=== PATIENT | male | born 1990 | race Caucasian/White ===

== ENCOUNTER 2018-06-23 23:13 | Inpatient (IN) ==
[2018-06-23] MEDS ORDERED: SODIUM CHLORIDE 0.9% 1000ML 1,000 ML IV STA (23:40)
[2018-06-23] MEDS ORDERED: SODIUM CHLORIDE 0.9% 1000ML 1,000 ML IV SCH (23:45)
[2018-06-23] MEDS ORDERED: NALOXONE HCL 0.4 MG/1 ML VIAL/CARP IV STA (23:49)
[2018-06-23 23:53] LABS: Basophils # (auto) 0.02 K/uL (0-0.2); Basophils % (auto) 0.1 %; Eosinophils % (auto) 0.7 %; Hemoglobin 16.1 g/dL (14.0-18.0); Immature Granulocytes # (auto) 0.06 K/uL (0.00-0.02); Immature Granulocytes % (auto) 0.4 %; Lymphocytes # (auto) 2.69 K/uL (1.2-3.4); Lymphocytes % (auto) 19.6 %; Mean Corpuscular Hgb Conc 32.9 g/dL (32-36); Mean Corpuscular Volume 83.8 fL (80-100); Mean Platelet Volume 9.8 fL (7.4-10.4); Monocytes # (auto) 1.15 K/uL (0.11-0.59); Monocytes % (auto) 8.4 %; Neutrophils # (auto) 9.71 K/uL (1.4-6.5); Neutrophils % (auto) 70.8 %; Platelet Count 248 K/uL (130-400); RDW Coefficient of Variation 13.9 % (11.5-14.5); RDW Standard Deviation 42.7 fL (36.4-46.3); Red Blood Count 5.85 M/uL (4.7-6.1); White Blood Count 13.73 K/uL (4.8-10.8)
[2018-06-24 00:12] LABS: Alanine Aminotransferase 120 U/L (12-78); Albumin Level 4.2 gm/dl (3.4-5.0); Aspartate Aminotransferase 38 U/L (15-37); BUN Creatinine Ratio 16.8 (10-20); Blood Urea Nitrogen 17 mg/dl (7-18); Calcium 8.8 mg/dl (8.5-10.1); Carbon Dioxide 29 mmol/L (21-32); Chloride 102 mmol/L (98-107); Est GFR (African American) 116.8; Est GFR (Non-African American) 100.8; Glucose 94 mg/dl (70-99); Magnesium 2.2 mg/dl (1.8-2.4); Potassium 3.8 mmol/L (3.5-5.1); Sodium 138 mmol/L (136-145)
[2018-06-24 00:14] LABS: Acetaminophen < 2 ug/ml (10-30)
[2018-06-24 00:15] LABS: Salicylate 3.7 mg/dl (2.8-20)
[2018-06-24 00:17] LABS: Albumin Globulin Ratio 0.9 (0.9-2); Alkaline Phosphatase 75 U/L (45-117); Bilirubin,Total 0.5 mg/dl (0.1-1); Creatine Kinase 115 U/L (39-308); Globulin 4.5 gm/dl (2.5-4.0); Total Protein 8.7 gm/dl (6.4-8.2); Troponin I < 0.015 ng/ml (0-0.045)
--- NOTE | 2018-06-24 01:59 | Emergency Department Note ---
Entered by Tanesha Hanna acting as a scribe for ED Provider Note CHIEF COMPLAINT: Vomiting HISTORY OF PRESENT ILLNESS: The patient is a 28 year old male with a history of drug and alcohol abuse who presents to the Emergency Room with complaints of persistent vomiting starting just prior to arrival. Per EMS, the patient presented to the [facility] after having used heroin, percocet, and cocaine. The patient reportedly stated that he uses cocaine nearly every day but does not usually use heroin. He also allegedly last consumed alcohol around 0300 today. EMS states that the patient was at [facility] for about 2.5 hours before he began vomiting and became lethargic. HPI limited secondary to the patient's medical acuity and altered mental status. REVIEW OF SYSTEMS: ROS limited secondary to the patient's medical acuity and altered mental status. PMHx/PSHx: Alcohol abuse, drug abuse SOCIAL HISTORY: Patient lives at home. PHYSICAL EXAM: GENERAL: Lethargic but arousable to tactile stimuli, in no distress. HENT: Normocephalic, atraumatic. Oropharynx unremarkable. EYES: Normal conjunctiva. Sclera non-icteric. NECK: Inspection normal. Non-tender. Supple. No nuchal rigidity. FROM. No masses. RESPIRATORY: Clear to auscultation. No wheezes. No rales. Normal respiratory effort. CARDIAC: Normal rate. Normal rhythm. No murmurs. No rubs. Extremities warm and well perfused. Pulses equal. No JVD. GI: Soft, non-distended. No tenderness to palpation. No rebound or guarding. No masses. RECTAL: Deferred. MUSCULOSKELETAL: Atraumatic. Chest examination reveals no tenderness. The back is symmetrical on inspection without obvious abnormality. There is no CVA tenderness to palpation. No joint edema. LOWER EXTREMITIES: Calves are equal size bilaterally and non-tender. No edema. No discoloration. NEURO: Altered sensorium. No sensory or motor deficits noted. SKIN: No rash or jaundice noted. EMERGENCY DEPARTMENT COURSE: 2325: Past medical records reviewed. The patient was evaluated in room A11B, and a complete history and physical examination were performed. 0014: I checked on the patient at this time. He is stated that he feels anxious before falling asleep. 0036: I reevaluated the patient and he is still somnolent and falls asleep during conversation. 0045: I reviewed the patient's case with Dr. Ramos - Hospitalist, [place]. Dr. Ramos will evaluate the patient for further management. MEDICAL DECISION MAKING: Prior records/ancillary studies reviewed. Triage Nursing notes reviewed and agree them. Additional history obtained from the family. The patient's history was concerning for altered mental status and probable overdose. Differential diagnosis: Etiologies such as toxicologic, infection, hypoglycemia, electrolyte abnormalities, cardiac sources, intracerebral event, neurologic, as well as others were entertained. Physical examination: The patient had altered sensorium. No trauma noted. The patient was extremely sleepy and would pass out without continued stimulation. He was hypoxic at one point down to 70% due to respiratory depression. This bounced back quickly with supplemental oxygen. ER treatment provided: IV NSS 1 L bolus IV hydration NSS 200 mL/hr IV Narcan Supplemental oxygen Diagnostic interpretation by me: The electrocardiogram was negative for pathologic change. There was no QRS widening or interval prolongation. The labs revealed a slight leukocytosis on CBC. LFTs mildly elevated. Aspirin Tylenol levels negative. Troponin negative. Imaging studies: Chest x-ray negative. The patient is experiencing an opioid toxidrome with possible benzodiazepines as well. He is extremely lethargic and is requiring supplemental oxygen. He will need further monitoring in the hospital. He is at risk for alcohol withdrawal as well. Consultation: A consultation was placed with the hospitalist. The case was discussed and diagnostics were reviewed. The patient was evaluated in the ER for further treatment. IMPRESSION: Overdose Hypoxia PLAN: Admit The scribe's documentation has been prepared under my direction and personally reviewed by me in its entirety. I confirm that the note above accurately reflects all work, treatment, procedures, and medical decision making performed by me. Impression & Plan Overdose, Hypoxia Past Med/Surg History Medical History Alcohol abuse Drug abuse Social History Feels Safe at Home: Yes Smoking Status: Current every day smoker Hx Alcohol Use: Yes Hx Substance Use: Yes substance use type: crack/cocaine and heroin Substance Use Type Other:: percocet Last Used Substance: Hours (ago) Preferred Language: French Results & Data Vital Signs Vital Signs - 24 hr 06/23/18 23:24 06/23/18 23:42 06/23/18 23:44 Temperature 36.9 C Temperature Source Oral Sepsis Recent Fever Within 48 Hours No Sepsis Action Taken by Nursing No Action Required Pulse Rate 97 H Pulse Rate [Apical] Respiratory Rate 18 Respiratory Effort / Characteristics Non-Labored Spontaneous Respiratory Depth Normal Blood Pressure 127/78 Blood Pressure [Right Arm] Blood Pressure Mean 94 Blood Pressure Mean [Right Arm] Pulse Oximetry 92 80 L 97 Oxygen Delivery Method Room Air Room Air Nasal Cannula Oxygen Flow Rate 4 06/24/18 00:31 06/24/18 01:45 Temperature Temperature Source Sepsis Recent Fever Within 48 Hours Sepsis Action Taken by Nursing Pulse Rate Pulse Rate [Apical] 83 80 Respiratory Rate 14 14 Respiratory Effort / Characteristics Non-Labored Spontaneous Non-Labored Spontaneous Respiratory Depth Normal Normal Blood Pressure Blood Pressure [Right Arm] 133/71 117/69 Blood Pressure Mean Blood Pressure Mean [Right Arm] 91 85 Pulse Oximetry 95 97 Oxygen Delivery Method Nasal Cannula Nasal Cannula Oxygen Flow Rate 4 4 Home Medications Current Medication List: was personally reviewed by me Laboratory Data Attestation: I reviewed the patient's lab results. Result diagrams: 06/23/18 23:41 06/23/18 23:41 Lab Results 06/23/18 06/23/18 06/23/18 Range/Units 23:41 23:41 23:41 WBC 13.73 H (4.8-10.8) K/uL RBC 5.85 (4.7-6.1) M/uL Hgb 16.1 (14.0-18.0) g/dL Hct 49.0 (42-52) % MCV 83.8 (80-100) fL MCH 27.5 (25-34) pg MCHC 32.9 (32-36) g/dL RDW Std Deviation 42.7 (36.4-46.3) fL RDW Coeff of Karuna 13.9 (11.5-14.5) % Plt Count 248 (130-400) K/uL MPV 9.8 (7.4-10.4) fL Immature Gran % (Auto) 0.4 % Neut % (Auto) 70.8 % Lymph % (Auto) 19.6 % Villalba % (Auto) 8.4 % Eos % (Auto) 0.7 % Baso % (Auto) 0.1 % Immature Gran # (Auto) 0.06 H (0.00-0.02) K/uL Neut # (Auto) 9.71 H (1.4-6.5) K/uL Lymph # (Auto) 2.69 (1.2-3.4) K/uL Villalba # (Auto) 1.15 H (0.11-0.59) K/uL Eos # (Auto) 0.10 (0-0.5) K/uL Baso # (Auto) 0.02 (0-0.2) K/uL Sodium 138 (136-145) mmol/L Potassium 3.8 (3.5-5.1) mmol/L Chloride 102 (98-107) mmol/L Carbon Dioxide 29 (21-32) mmol/L Anion Gap 7.0 (3-11) BUN 17 (7-18) mg/dl Creatinine 1.01 (0.6-1.4) mg/dl Est Cr Clr Drug Dosing Not Reportable Est GFR ( Amer) 116.8 Est GFR (Non-Af Amer) 100.8 BUN/Creatinine Ratio 16.8 (10-20) Glucose 94 (70-99) mg/dl Calcium 8.8 (8.5-10.1) mg/dl Magnesium 2.2 (1.8-2.4) mg/dl Total Bilirubin 0.5 (0.1-1) mg/dl AST 38 H (15-37) U/L ALT 120 H (12-78) U/L Alkaline Phosphatase 75 (45-117) U/L Total Creatine Kinase 115 (39-308) U/L Troponin I < 0.015 (0-0.045) ng/ml Total Protein 8.7 H (6.4-8.2) gm/dl Albumin 4.2 (3.4-5.0) gm/dl Globulin 4.5 H (2.5-4.0) gm/dl Albumin/Globulin Ratio 0.9 (0.9-2) Salicylates 3.7 (2.8-20) mg/dl Acetaminophen < 2 L (10-30) ug/ml Ethyl Alcohol mg/dL (0-3) mg/dl 06/23/18 Range/Units 23:41 WBC (4.8-10.8) K/uL RBC (4.7-6.1) M/uL Hgb (14.0-18.0) g/dL Hct (42-52) % MCV (80-100) fL MCH (25-34) pg MCHC (32-36) g/dL RDW Std Deviation (36.4-46.3) fL RDW Coeff of Karuna (11.5-14.5) % Plt Count (130-400) K/uL MPV (7.4-10.4) fL Immature Gran % (Auto) % Neut % (Auto) % Lymph % (Auto) % Villalba % (Auto) % Eos % (Auto) % Baso % (Auto) % Immature Gran # (Auto) (0.00-0.02) K/uL Neut # (Auto) (1.4-6.5) K/uL Lymph # (Auto) (1.2-3.4) K/uL Villalba # (Auto) (0.11-0.59) K/uL Eos # (Auto) (0-0.5) K/uL Baso # (Auto) (0-0.2) K/uL Sodium (136-145) mmol/L Potassium (3.5-5.1) mmol/L Chloride (98-107) mmol/L Carbon Dioxide (21-32) mmol/L Anion Gap (3-11) BUN (7-18) mg/dl Creatinine (0.6-1.4) mg/dl Est Cr Clr Drug Dosing Est GFR ( Amer) Est GFR (Non-Af Amer) BUN/Creatinine Ratio (10-20) Glucose (70-99) mg/dl Calcium (8.5-10.1) mg/dl Magnesium (1.8-2.4) mg/dl Total Bilirubin (0.1-1) mg/dl AST (15-37) U/L ALT (12-78) U/L Alkaline Phosphatase (45-117) U/L Total Creatine Kinase (39-308) U/L Troponin I (0-0.045) ng/ml Total Protein (6.4-8.2) gm/dl Albumin (3.4-5.0) gm/dl Globulin (2.5-4.0) gm/dl Albumin/Globulin Ratio (0.9-2) Salicylates (2.8-20) mg/dl Acetaminophen (10-30) ug/ml Ethyl Alcohol mg/dL < 3.0 (0-3) mg/dl Administered Medications Sodium Chloride (Nss 1000ml) 1,000 mls @ 200 mls/hr IV .Q5H STA Stop: 06/24/18 04:39 Last Admin: 06/23/18 23:55 Dose: 200 mls/hr Discontinued Medications Sodium Chloride (Nss 1000ml) 1,000 mls @ 999 mls/hr IV .Q1H1M DEIRDRE Stop: 06/24/18 00:45 Last Infusion: 06/24/18 00:39 Dose: 0 mls/hr Admin: 06/23/18 23:55 Dose: 999 mls/hr Naloxone HCl (Narcan) 0.2 mg IV NOW STA Stop: 06/23/18 23:50 Last Admin: 06/23/18 23:55 Dose: 0.2 mg Imaging Data Attestation: I personally reviewed and interpreted this imaging study as follows : My Impression: XR CHEST 1V I interpreted the following studies. Chest: A one view study of the chest was reviewed and was negative for pneumothorax, cardiomegaly, focal infiltrate, effusion, pulmonary edema, or wide mediastinum. ECG Data Attestation: I personally reviewed and interpreted this ECG as follows: Indication: vomiting Rate (beats per minute): 82 Rhythm: normal sinus Findings: + other (QTc is 408 ms, QRS is 92 ms); no PAC, no PVC, no ST depression and no ST elevation Blood Pressure Blood Pressure Findings: Normal blood pressure Discharge Plan Visit Data Chief Complaint: Vomiting Other Complaint: Anxiety ED Provider: Arun Barba Discharge Problem: Overdose, Hypoxia Forms Stand Alone Forms: My [facility] Prescriptions Prescriptions: No Action duloxetine [Cymbalta] 60 mg Capsule,Delayed Release(Dr/Ec) 60 mg PO DAILY RF: 0 Referrals Referrals: PCP,NO [Primary Care Provider] - The scribe's documentation has been prepared under my direction and personally reviewed by me in its entirety. I confirm that the note above accurately reflects all work, treatment, procedures, and medical decision making performed by me.
[2018-06-24 02:30] LABS: Appearance Urine Clear (Clear); Bacteria Urine Automated Negative (Negative); Bilirubin Urine Negative (Negative); Color Urine Yellow; Glucose Urine UA Negative (Negative); Ketones Urine Negative (Negative); Leukocyte Esterase Urine Negative (Negative); Nitrite Urine Negative (Negative); Protein Urine Negative (Negative); Specific Gravity Urine 1.017 (1.000-1.030); Urobilinogen Urine Negative (Negative)
[2018-06-24 02:52] LABS: Amphetamines+Metham, Urine Neg (Neg); Barbiturates, Urine Neg (Neg); Benzodiazepine, Urine Pos (Neg); Cocaine, Urine Pos (Neg); MDMA (Ecstacy), Urine Neg (Neg); Methadone, Urine Neg (Neg); Opiate, Urine Pos (Neg); Phencyclidine, Urine Neg (Neg)
[2018-06-24] MEDS ORDERED: ICU PROTOCOL FOR HYPERGLYCEMIA PRN (03:17)
[2018-06-24] MEDS ORDERED: MULTI-VITAMIN INFUSION 10 ML, THIAMINE HCL 100 MG, FOLIC ACID 1 MG in SODIUM CHLORIDE 0... IV SCH (03:17)
[2018-06-24] MEDS ORDERED: NALOXONE HCL IV PRN (03:23)
[2018-06-24] MEDS ORDERED: SODIUM CHLORIDE 0.9% IV PRN (03:23)
--- NOTE | 2018-06-24 03:29 | History and Physical Report ---
DATE OF ADMISSION: 06/24/2018 CHIEF COMPLAINT: Drug overdose. HISTORY OF PRESENT ILLNESS: This is a 28-year-old male who went to [facility] today, was brought in because of lethargy there. It seems today the patient was getting admitted to rehab today and he seemed partied with alcohol some benzos and Percocet and cocaine and heroin that patient admitted in the ER. Patient is arousable, but goes back to sleep. He told he never earlier took heroin but he just had yesterday for first time and he took 2-3 Percocet .In the ER, he was desaturating at 80% on room air and placed him 4 L and was saturating ok.But then he was having a few apneic episodes when Narcan was given and he became a little anxious. Currently he is again drowsy, but arousable. He can tell his name, knows that he is in the hospital. He states that he is hungry and then he goes back to sleep. Could not get much history from the patient. Currently hemodynamically stable. ALLERGIES: No known drug allergies. PAST MEDICAL HISTORY: alcohol and drug abuse. Could not give much history. PAST SURGICAL HISTORY: Unobtainable at this time. MEDICATIONS: Unobtainable, seems to be on Cymbalta as per the ER record. FAMILY HISTORY: Unobtainable. SOCIAL HISTORY: Unobtainable. REVIEW OF SYSTEMS: Unobtainable. PHYSICAL EXAMINATION: GENERAL: The patient is drowsy. HEENT: No pallor, no icterus. NECK: No neck masses. Supple. CARDIOVASCULAR: S1, S2 heard, regular rate and rhythm, no murmur, no gallop. RESPIRATORY SYSTEM: Normal AP diameter. No accessory muscle use. No wheezing, no crackles. ABDOMEN: Soft, bowel sounds present. Nontender. No distention. CENTRAL NERVOUS SYSTEM: Drowsy, oriented to name and place, goes back to sleep. Moves extremities. EXTREMITIES: No edema, no erythema. LABORATORIES: WBC 13.7, hemoglobin 16.1, hematocrit 49, platelets 248. Sodium 138, potassium 3.8, chloride 102, bicarbonate 29, BUN 17, creatinine 1, serum glucose 94, calcium 8.8, magnesium 2.2, total bilirubin 0.5, AST 38, ALT 120, alkaline phosphatase 75, total creatinine kinase 115. Troponin I less than 0.015. Toxicology screen, salicylates less than 3.7, acetaminophen less than 2. Chest x-ray: No acute findings. EKG: Normal sinus rhythm with rate of 82, no acute ST changes seen. ASSESSMENT AND PLAN: This is a 28-year-old male who presents with altered mental status secondary to drug overdose. 1. Drug overdose, altered mental status. The patient has a history of alcoholism and benzos addiction. He was trying to go to [facility]. He went there and was lethargic and was brought in here. He was hypoxic and requiring 4 L of oxygen. The patient admitted in ER that he took cocaine, heroin, 2 tablets of Percocet, and also alcohol, and some Xanax. He was apneic in the Emergency Room was given Narcan and became anxious but again he is going back to sleep. We will closely monitor in the Intensive Care Unit overnight, n.p.o. for now, intravenous fluids. 2. Chronic alcoholism. He usually drinks 4-5 drinks per day for as per Emergency Room physician. We will also follow his drug screen. We will hold for alcohol withdrawal protocol with gabapentin for now as the patient is very drowsy. We will give banana bag and we plan to send him back to [facility] when the patient is stable. 3. Leukocytosis. We will follow the labs in morning. 4. Mild elevation of liver function tests, mostly from alcoholism. We will follow repeat labs. 5. Deep venous thrombosis prophylaxis, sequential compression devices for now. DISPOSITION: Close monitor in the ICU. Level I full code. MTDD
[2018-06-24] MEDS ORDERED: NALOXONE HCL 0.4 MG/1 ML VIAL/CARP IV PRN (03:33)
--- NOTE | 2018-06-24 03:39 | Critical Care Consultation ---
Date of Consultation June 24, 2018 Assessment & Plan (1) Admitted to intensive care unit: Reason Critically Ill: 28-year-old male status post multi-substance overdose with episode of apnea in the emergency department likely related to opiate and benzodiazepine abuse. Patient requiring close airway and hemodynamic monitoring. NEURO/PSYCH - * CAM ICU: NEGATIVE * Multisubstance Overdose: * In the setting of recreational abuse. * Was currently at rehab facility for known h/o EtOH/Cocaine abuse Hx. * Admitted to Percocet, Heroin, Cocaine use prior to arrival at rehab. * N/V and lethergy in ED. * Episode of apnea w/ associated hypoxia in ED. Responded to Narcan x1. * Patient still intoxicated appearing. Conversational, but very confrontational. * Will avoid any further sedating medications if possible. Will not compromise staff safety for patient's withdrawal s/s, however. * Further sedation will result in delayed return to rehab which, ultimately is the patient's best plan at this time. * Would advocate for supervised transportation 2/2 recent events to prevent cyclical pattern of abuse. * Plan for early d/c back to [facility]. CARDIAC/VASCULAR - * No h/o cardiovasular Dz. * Monitor for any s/s of significant cocaine injestion. * EKG: NSR 82bpm, no acute ST/T-wave changes. * Monitor on telemetry. RESPIRATORY - * Hypoxemia 2/2 Respiratory Depression from polysubstance OD: * Supplemental O2 PRN. * ABCs. GI/NUTRITION - * NPO currently. Will progress diet as patient improves. RENAL/LYTES - * No significant electrolyte derangements. * Monitor lytes - replace appropriately. - * No concerns at this time. ENDO - * No h/o DM or Thyroid Dz. * BSGs per unit protocol. ISS --> gtt per unit policy. HEME - * Stable H&H. * Will repeat in AM. ID - * No c/o infectious sources at this point. * Monitor fever curve. LINES/IV ACCESS - * PIVs x2 DVT PROPHYLAXIS - * Will hold on chemoprophylaxis w/ anticipated early discharge. I have personally spent 60 minutes of critical care time in the direct management of this patient. This is a life/limb threatening event. This includes time spent evaluating patient, direct bedside care, chart review, placing orders, interpretation of diagnostic studies, discussion with consultants, patient, and family members, as well as other required patient management activities. This time is exclusive of all separately billable procedures, and teaching time and separate from and in addition to any other critical care service time. Thank you for allowing us to participate in the care of this patient. Please refer to my attending physician's documentation for any further recommendations. The patient was seen, examined independently, agree with assessment and plan of my colleagues at [facility]. The patient is a young gentleman, who had a history of illicit drug use, has been on Suboxone before, history of alcoholism, has been in withdrawal and he was at the rehab hospital for alcoholism. The patient was discharged from the hospital yesterday and he went on abusing heroine, cocaine, benzodiazepine, and marijuana. The patient presented to the hospital initially where he was with minor agitation that escalated later to tremor. He was mentating very well, answering questions properly. I am not sure if also he had a pseudo-tremor as well. However, the patient has been withdrawn in the past, admitted to an outside rehab facility at [facility], the patient felt minimal hallucinations, he feels itchy everywhere, appears to be restless. Denies any cough, nausea or vomiting, sore throat, constitutional symptoms, fever, diarrhea, abdominal pain , swelling in his ankles, or any of his joints, no rash. Neurologically apart from the tremor he was nonfocal. His pupils were reactive and midsize. His physical exam revealed middle-aged gentleman, appears to be restless, vital signs are stable, S1-S2 regular rate and rhythm, scattered rhonchi, abdomen is benign, no edema, tremor noted. The patient is active smoker, and active illicit drug use including marijuana heroin and cocaine. He has been on a program for Suboxone in the past. Family history is not contributing to his current illness. No significant past surgical history. His laboratory also was reviewed which were positive toxicology for cocaine, narcotics, benzodiazepine, marijuana. He has not been taking lithium and his lithium level is low although it was mentioned on his medication profile. Labs were reviewed also personally, all acceptable. Imaging including chest x- ray that was normal. Impression: 1. Relapse of substance abuse. 2. History of DVT in the past but currently he is with good mental status except for minimal tremor. 3. Smoking addiction as well. 4. Alcoholism. Plan: 1. I would give the patient is single dose of Valium 10 mg IV. 2. Given his mental status that has been good, I will start him on Librium 50 mg p.o. 4 times daily. 3. I will start the patient on Zyprexa 10 mg p.o. twice daily due to hallucination. 4. Start the patient on folic acid 1 mg p.o. daily. 5. Start the patient on thiamine 100 mg p.o. daily. 6. The patient is ambulating by himself out of the bed and it was very difficult actually to convince him to stay in bed. 7. We have contacted [facility], and they are accepting him to go back again to the drug rehab as an inpatient. He is in agreement. 8. Appreciate Dr. Fox transferring this patient to inpatient drug rehab. 9. Oral intake. 10. Discussed with the staff in details. 11. Just to mention, head CT was negative for intracranial catastrophe. Discussed with the patient, he is in agreement with the treatment, critical care time spent with the patient was 45 minutes. (2) Drug overdose, multiple drugs: (3) Alcoholism: (4) Drug abuse: (5) Narcotic-induced respiratory depression: History of Present Illness History of Present Illness Patient is a 28-year-old male with significant past medical history of substance abuse and alcoholism who initially presented to the emergency department for multi-substance overdose. Apparently, the patient was to be enrolled today at [facility] treatment facility for alcoholism as well as cocaine use. Apparently, upon arrival at the facility, the patient had admitted to taking multiple substances including heroin, Percocet, and cocaine. He reports that his last drink was at 0 300 yesterday. He admits to drinking "a few pints" of [facility] apple each day. He prefers to utilize cocaine, however heroin was apparently used today. While at [facility], the patient became nauseated and started vomiting. In addition, he was reportedly lethargic and there was concerns for his substance abuse. He was sent to the emergency department. On evaluation, the patient apparently had a several second episode of apnea requiring Narcan administration with response. Since that 1 dose, he has been awake and alert. Upon arrival in the ICU, the patient is awake, alert, and oriented. He does clinically appear intoxicated, however. Patient offers no complaints of pain, however he does not wish to be in this facility. He is requested to be discharged. Allergies Allergy/AdvReac Type Severity Reaction Status Date / Time No Known Allergies Allergy Unverified 06/24/18 00:12 Home Medications Home Medications Medication Instructions Recorded Confirmed Type duloxetine [Cymbalta] 60 mg PO DAILY 06/24/18 06/24/18 History folic acid 1 mg PO QAM 30 Days #30 tab 06/24/18 Rx nicotine [Nicoderm CQ] 21 mg TRANSDERMAL QAM 30 Days #30 06/24/18 Rx ea thiamine HCl (vitamin B1) [Vitamin 100 mg PO QAM 30 Days #30 tab 06/24/18 Rx B-1] Patient History Social History marital status: Single Feels Safe at Home: Yes Smoking Status: Current every day smoker Hx Alcohol Use: Yes Hx Substance Use: Yes substance use type: crack/cocaine and heroin Substance Use Type Other:: percocet Last Used Substance: Just Prior to Arrival Preferred Language: Hungarian Review of Systems A complete 10 point review of systems was reviewed with the patient with pertinent positives and negatives as per history of present illness. All else were negative. Physical Exam 2 Vital Signs (Past 24 Hours): Last Vital Signs Temp 36.9 C 06/23/18 23:24 Pulse 80 06/24/18 01:45 Resp 14 06/24/18 01:45 BP 117/69 06/24/18 01:45 Pulse Ox 97 06/24/18 01:45 Physical Exam: VITAL SIGNS - Vital signs and nursing notes were reviewed. GENERAL - 28-year-old male appearing his stated age who is in no acute distress. Intoxicated appearing. SKIN - Without rashes. HEAD - NC/AT. EYES - PERRL with EOMI bilaterally. Sclera anicteric. Palpebral conjunctiva pink and moist with no injection noted. EARS - No deformities of external structures noted on gross examination bilaterally. No pain elicited with palpation of the tragus bilaterally. External auditory canals without discharge or otorrhea. NOSE - Midline and without cyanosis. No epistaxis or purulent drainage noted. Septum midline without deviation or septal hematoma noted. MOUTH/OROPHARYNX - Without perioral cyanosis. Buccal mucosa pink and moist and without leukoplakia. Tongue midline with equal elevation of palate bilaterally. No tonsillar hypertrophy, erythema, or exudates noted. Good dentition noted. NECK - Neck with FROM. Supple to palpation. No lymphadenopathy noted. No nuchal rigidity. LUNGS - Chest wall symmetric without accessory muscle use, intercostals retractions, or central cyanosis. Normal vesicular breath sounds CTA B/L. No wheezes, rales, or rhonchi appreciated. CARDIAC - RRR with S1/S2. No murmur, rubs, or gallops appreciated. ABDOMEN - Abdominal contour flat without pulsations or visible masses. BS normoactive all four quadrants. No tenderness, palpable masses, hepatosplenomegaly, or ascites noted. EXTREMITIES - No clubbing or peripheral cyanosis. No pretibial edema present. +3 /5 radial and dorsalis pedis pulses palpated throughout. +5/5 strength noted in UE/LE bilaterally. NEUROLOGIC - Cranial nerves II through XII grossly intact. Sensory intact to light touch throughout. Patellar reflexes +2/4. PSYCH - A&Ox3 and cooperates fully with examiner. Confrontational and intoxicated.
[2018-06-24 04:19] LABS: Basophils # (auto) 0.02 K/uL (0-0.2); Basophils % (auto) 0.2 %; Eosinophils # (auto) 0.11 K/uL (0-0.5); Eosinophils % (auto) 1.2 %; Hematocrit (blood only) 43.4 % (42-52); Hemoglobin 14.3 g/dL (14.0-18.0); Immature Granulocytes # (auto) 0.02 K/uL (0.00-0.02); Immature Granulocytes % (auto) 0.2 %; Lymphocytes # (auto) 3.02 K/uL (1.2-3.4); Lymphocytes % (auto) 31.8 %; Mean Corpuscular Hgb Conc 32.9 g/dL (32-36); Mean Corpuscular Volume 83.6 fL (80-100); Mean Platelet Volume 9.6 fL (7.4-10.4); Monocytes # (auto) 0.89 K/uL (0.11-0.59); Monocytes % (auto) 9.4 %; Neutrophils # (auto) 5.44 K/uL (1.4-6.5); Neutrophils % (auto) 57.2 %; Platelet Count 225 K/uL (130-400); RDW Coefficient of Variation 13.9 % (11.5-14.5); RDW Standard Deviation 42.7 fL (36.4-46.3); Red Blood Count 5.19 M/uL (4.7-6.1)
[2018-06-24 04:39] LABS: Bilirubin Direct 0.1 mg/dl (0-0.2)
[2018-06-24 04:40] LABS: Albumin Level 3.5 gm/dl (3.4-5.0); BUN Creatinine Ratio 17.9 (10-20); Calcium 8.2 mg/dl (8.5-10.1); Creatinine Clr Calc Pharmacy 136.1 ml/min; Est GFR (African American) 140.9; Est GFR (Non-African American) 121.6; Potassium 3.9 mmol/L (3.5-5.1)
[2018-06-24 04:41] LABS: Bilirubin,Total 0.5 mg/dl (0.1-1); Total Protein 7.2 gm/dl (6.4-8.2)
[2018-06-24] MEDS ORDERED: SODIUM CHLORIDE 0.9% 1000ML 1,000 ML IV SCH (05:00)
--- NOTE | 2018-06-24 06:17 | XRay Report ---
XR chest 1V portable HISTORY: 28 years-old Male overdose acutely altered mental status in a patient with drug overdose COMPARISON: None available TECHNIQUE: Portable AP view of the chest FINDINGS: Cardiomediastinal and hilar silhouettes are within normal limits. No pneumothorax, pleural effusion, focal airspace consolidation or overt pulmonary edema. Lungs appear mildly hyperinflated. Bones of th e chest appear grossly intact. Mild convex right curvature of the midthoracic spine, possibly accentu ated by positioning. IMPRESSION: No acute process. The above report was generated using voice recognition software. It may contain grammatical, syntax o r spelling errors. Electronically signed by: Jim Ruiz M.D. 06/24/2018 6:16 AM
[2018-06-24] MEDS ORDERED: chlordiazePOXIDE HCl 25 MG CAP PO ONE (07:59)
[2018-06-24] MEDS ORDERED: DIAZEPAM 5 MG/ML INJ 10ML VIAL IV ONE (10:12)
[2018-06-24] MEDS ORDERED: FOLIC ACID 1 MG TAB PO SCH (10:15)
[2018-06-24] MEDS ORDERED: THIAMINE HCL 100 MG TAB PO SCH (10:15)
[2018-06-24] MEDS: chlordiazePOXIDE HCl 25 MG CAP PO SCH ×2 (10:48→14:05)
[2018-06-24] MEDS ORDERED: NICOTINE 21 MG/24 HR TDSY TD SCH (11:15)
--- NOTE | 2018-06-24 12:54 | Hospitalist Progress Note ---
Date of Service June 24, 2018 Assessment & Plan (1) Narcotic-induced respiratory depression: status post multi-substance overdose with episode of apnea related to opiate and benzodiazepine abuse sent form [facility] Drug and alcohol rehab to ER was admitted to ICU overnight symptom resolved after Narcane alert and aweke , no hypoxia, in room air * EKG: NSR 82bpm, no acute ST/T-wave changes. 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 /polysubstance abuse ( cocaine, Heroine , Xanax, percocet ) presented with hypoxiemia, sedation , lethergy secondray to respiratory depression from polysubstance abuse pt reports of drinking Alchohol , ingesting cocaine prior to going to drug / alcohol rehab given multiple dose of Narcane remains stable hemodynamically normal cognition (3) Drug abuse: Management as outlined above (4) Polysubstance abuse: Management as outlined above, patient clinically improved after supportive care Stable to return to drug alcohol rehab at [facility] (5) Alcohol abuse: Started with Librium for alcohol withdrawal symptoms Does not have any overt signs or symptoms of DVT Patient is stable to return to drug alcohol rehab today DISPOSITION Discharged to drug and alcohol rehab at [place] today Subjective awake in alert restless walking in room independently vitals remains stable no s/s of active withdrawl no hypoxia , in room air stable to return to Drug /ETOH rehab at [facility] Physical Exam 2 Vital Signs (Past 24 Hours): Last Vital Signs Temp 36.5 C 06/24/18 11:14 Pulse 89 06/24/18 11:14 Resp 18 06/24/18 11:14 BP 126/65 06/24/18 11:14 Pulse Ox 97 06/24/18 11:14 Constitutional: WD/WN, vitals as above no acute distress Eyes: PERRL, conjunctivae normal, anicteric sclerae ENMT: external ear and nose normal, oropharynx normal Neck: trachea midline, no thyromegaly Respiratory: normal respiratory effort, lungs clear to auscultation Cardiovascular: RRR, no murmur, no edema Gastrointestinal (Abdomen): normal bowel sounds, soft, nontender, no hepatosplenomegaly Musculoskeletal: no cyanosis or clubbing, extremities motor strength 5/5 Neurologic: PERRL, EOMI, accommodation nl, no face palsy, no dysarthria Psychiatric: Orientation: alert and oriented x 3 Affect: + anxious affect _ (1) Drug overdose, multiple drugs Encounter type: initial encounter Injury intent: undetermined intent Qualified Code(s): T50.904A - Poisoning by unspecified drugs, medicaments and biological substances, undetermined, initial encounter
[2018-06-24] MEDS ORDERED: ONDANSETRON 4 MG TAB PO STA (13:46)
--- NOTE | 2018-06-24 15:53 | Discharge Summary ---
Date of Service June 24, 2018 Principal Diagnosis PALCHOHOL ABUSE OLYSUBSTANCE OVER DOSE /HISTORY OF DRUG ( COCAINE /HEROINE ) Discharge Exam Constitutional WD/WN, vitals as above no acute distress Eyes PERRL, conjunctivae normal, anicteric sclerae ENMT external ear and nose normal, oropharynx normal Neck trachea midline, no thyromegaly Respiratory normal respiratory effort, lungs clear to auscultation Cardiovascular RRR, no murmur, no edema Gastrointestinal (Abdomen) normal bowel sounds, soft, nontender, no hepatosplenomegaly Musculoskeletal no cyanosis or clubbing, extremities motor strength 5/5 Neurologic PERRL, EOMI, accommodation nl, no face palsy, no dysarthria Psychiatric Orientation: alert and oriented x 3 Affect: + anxious affect Discharge Data Allergies Allergy/AdvReac Type Severity Reaction Status Date / Time No Known Allergies Allergy Unverified 06/24/18 00:12 Consultations 06/24/18 01:00 ED Decision to Admit Stat 06/24/18 03:17 Consult Case Management - Discharge Planning Routine Consult Manager Women Routine Hospital Course (1) Narcotic-induced respiratory depression: status post multi-substance overdose with episode of apnea related to opiate and benzodiazepine abuse sent form [facility] Drug and alcohol rehab to ER was admitted to ICU overnight symptom resolved after Narcane alert and aweke , no hypoxia, in room air * EKG: NSR 82bpm, no acute ST/T-wave changes. 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 abuse ( cocaine, Heroine , Xanax, percocet ) presented with hypoxiemia, sedation , lethergy secondray to respiratory depression from polysubstance abuse pt reports of drinking Alchohol , ingesting cocaine prior to going to drug / alcohol rehab given multiple dose of Narcane remains stable hemodynamically normal cognition (3) Drug abuse: Management as outlined above (4) Polysubstance abuse: Management as outlined above, patient clinically improved after supportive care Stable to return to drug alcohol rehab at [facility] (5) Alcohol abuse: Started with Librium for alcohol withdrawal symptoms Does not have any overt signs or symptoms of DVT Patient is stable to return to drug alcohol rehab today DISPOSITION Discharged to drug and alcohol rehab at [place] today Total Time Total Time Spent Total Time Spent (In Minutes): 35 MINS Total Time Includes: Examination of the Patient, Discharge Planning, Medication Reconciliation and Communication With Other Providers Discharge Plan Discharge Items Patient Disposition: Drug & Alcohol Rehab Reason For Visit: DRUG OVERDOSE Discharge Diagnosis: PALCHOHOL ABUSE OLYSUBSTANCE OVER DOSE /HISTORY OF DRUG ( COCAINE /HEROINE ) Discharge Goals: Decrease discomfort and Therapeutic intervention Activity: Resume your previous activity Non-emergency contact: Primary Care Provider Call non-emergency contact if: you have any medication questions Diet: Regular Addtl Provider Instructions: RETURN TO DRUG [facility]OL REHAB AT [facility] TO COMPLETE DRUG REHAB Prescriptions: New thiamine HCl (vitamin B1) [Vitamin B-1] 100 mg Tablet 100 mg PO QAM 30 Days Qty: 30 RF: 0 folic acid 1 mg Tablet 1 mg PO QAM 30 Days Qty: 30 RF: 0 nicotine [Nicoderm CQ] 21 mg/24 hr Patch 24 Hour 21 mg Transdermal QAM 30 Days Qty: 30 RF: 0 Continue duloxetine [Cymbalta] 60 mg Capsule,Delayed Release(Dr/Ec) 60 mg PO DAILY RF: 0 Stand-Alone Forms: [facility] Discharge Orders: Discharge Order (Routine); Ordered 06/24/18 Ordered By: Theodora Fox Admission Data Admit Date/Time: 06/24/18 01:23 Attending Provider: Theodora Fox Admit Provider: Shadi Ramos Primary Care Provider: PCP,NO Other Providers: Shadi Ramos ; Glen Christie Service: Intensive Care Unit Other Interventions: Discharge Summary Assessment (RN) Last Done: 06/24/18 12:54
[2018-06-24] MEDS ORDERED: OLANZapine 10 MG TAB PO SCH (22:30)
[2018-07-01 07:36] LABS: 7-Aminoclonaz, Confirm NEGATIVE NG/ML (CUTOFF=25); Cocaine, Urine >50000 NG/ML (CUTOFF=100); Hydro-Alp Ur, GC/MS NEGATIVE NG/ML (CUTOFF=25); Hydrocodone Urine NEGATIVE NG/ML (CUTOFF=50); Hydromor Urine NEGATIVE NG/ML (CUTOFF=50); Hydroxyethylflurazepam, Conf NEGATIVE NG/ML (CUTOFF=50); Hydroxytriazolam NEGATIVE NG/ML (CUTOFF=50); Lorazepam, Ur GC/MS NEGATIVE NG/ML (CUTOFF=50); Marijuana Quant, GCMS Urine 107 NG/ML (CUTOFF=5); Morphine Urine 3510 NG/ML (CUTOFF=50); Nordiazepam, Confirm NEGATIVE NG/ML (CUTOFF=50); Norhydrocodone Conf Ur NEGATIVE NG/ML (CUTOFF=50); Noroxycodone Urine 920 NG/ML (CUTOFF=50); Oxazepam Ur, GC/MS 573 NG/ML (CUTOFF=50); Oxycodone Urine 878 NG/ML (CUTOFF=50); Temazepam, Confirm NEGATIVE NG/ML (CUTOFF=50)
== END 2018-06-24 16:07 | disposition alcohol treatment (31) | DRG 918 ==
LOC: ED 23:13 → 1E 06-24 01:23